=== PATIENT | male | born 2000 | race Caucasian/White ===

== ENCOUNTER 2023-08-25 22:06 | Emergency (ER) | payer OTHER, SELFPAY ==
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
[2023-08-25 22:21] VITALS: BP 137/83; PULSE 81; RESP 20; TEMP 36.7; O2SAT 100
[2023-08-26 00:59] VITALS: BP 139/74; PULSE 67; RESP 18; O2SAT 100
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
== END 2023-08-26 03:09 | disposition home or self-care (01) ==
LOC: ANHED 08-26 03:04
PROVIDERS: Emergency Provider Emergency Medicine
DX: M54.2 Cervicalgia (principal); M25.511 Pain in right shoulder; V43.52XA Car driver injured in collision with other type car in traffic accident, initial encounter
CPT/HCPCS: 71045; 73030; 99284